=== PATIENT | male | born 1990 | race Caucasian/White ===

== ENCOUNTER 2017-07-15 07:23 | Observation (INO) | payer OTHER, MEDICAID ==
[~2017-07-15 07:23] MED LIST: CLINDAMYCIN 900 MG/DEXTROSE 50 ML IV ONE
[2017-07-15] MEDS ORDERED: LIDOCAINE 1% 2 ML INJ ONE (07:35)
[2017-07-15] MEDS ORDERED: LIDOCAINE 1% 2 ML INJ ID PRN (07:50)
[2017-07-15] MEDS ORDERED: LR 1,000 ML IV ONE (07:50)
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
[2017-07-15] MEDS ORDERED: ROPIVACAINE HCL 150 MG/30 ML INJ ONE (09:09)
[2017-07-15] MEDS ORDERED: fentaNYL 100 MCG/2 ML INJ ONE ×2 (09:10)
[2017-07-15] MEDS ORDERED: PROPOFOL 200 MG/20 ML VIAL ONE ×2 (09:10→10:03)
--- NOTE | 2017-07-15 09:13 | PDHPUP ---
History & Physical Update H&P update statement: This history and physical update is based on an assessment of the patient which was completed after admission or registration (within 24 hours), but prior to the surgery/procedure.
[2017-07-15] MEDS ORDERED: HYDROmorphONE/DILAUDID 2 MG/ML INJ ONE (10:02)
[2017-07-15] MEDS ORDERED: PROMETHAZINE HCL 25 MG/ML INJ IVP PRN (11:44)
[2017-07-15] MEDS ORDERED: HYDROmorphONE/DILAUDID 1 MG/ML INJ IVP PRN ×2 (11:44→13:15)
[2017-07-15] MEDS ORDERED: fentaNYL 100 MCG/2 ML INJ IVP PRN (11:44)
[2017-07-15] MEDS ORDERED: NALOXONE HCL 0.4 MG/ML INJ IVP PRN (11:44)
[2017-07-15] MEDS ORDERED: ONDANSETRON 4 MG/2 ML VIAL IVP PRN (11:44)
[2017-07-15] MEDS ORDERED: ROPIVACAINE 0.2% 550 MG in WATER FOR INJECTION,STERILE 275 ML, PUMP SET 1 EA NB SCH (12:30)
[2017-07-15] MEDS ORDERED: ONDANSETRON 4 MG/2 ML VIAL ONE (13:08)
[2017-07-15] MEDS ORDERED: DEXAMETHASONE 4 MG/ML VIAL ONE (13:08)
--- NOTE | 2017-07-15 13:09 | POSTOPPROG ---
Post Op Note Date of Operation: 07/15/17 Surgeon: Cesar Page Starch Mangle Tender: Stephanie Anesthesia: GET(General Endotracheal) Pre-op Diagnosis: R cavovarus foot Post-op Diagnosis: same Indication: above Procedure: R cavovarus foot correction Inf/Abcess present in the surg proc area at time of surgery?: No EBL: 50-100
[2017-07-15] MEDS ORDERED: oxyCODONE IR 5 MG TAB PO PRN (13:15)
[2017-07-15] MEDS ORDERED: ACETAMINOPHEN 325 MG TAB PO PRN (13:15)
--- NOTE | 2017-07-15 13:16 | POSTANESTH ---
Post Anesthetic Evaluation Cardiovascular Status: Normal, Stable Respiratory Status: Normal, Stable Level of Consciousness/Mental Status: Can Participate in Eval Pain Control: Adequate, Prn Tx Ordered Nausea/Vomiting Control: Adequate, Prn Tx Ordered Complications Possibly Related to Anesthesia: None Noted
[2017-07-15] MEDS ORDERED: HYDROmorphone HCL/NS/PF 0.4 MG/2 ML SYR IVP PRN (13:42)
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
[2017-07-16 03:09] VITALS: TEMP 98.1
[2017-07-16 07:57] VITALS: BP 126/58; PULSE 93; RESP 16; O2SAT 91
[2017-07-16] MEDS ORDERED: ENOXAPARIN 40 MG/0.4 ML SYR SC SCH (09:00)
--- NOTE | 2017-07-16 09:07 | SOAPPROG ---
SOAP Progress Note Assessment/Plan: Assessment: R cavovarus foot correction Plan: Home today ice elevate no wt 07/16/17 09:05 Subjective: no pain Objective: Vital Signs Temp Pulse Resp BP Pulse Ox 36.7 C 93 16 126/58 H 91 L 07/16/17 07:55 07/16/17 07:55 07/16/17 07:55 07/16/17 07:55 07/16/17 07:55 07/15/17 07/16/17 07/17/17 05:59 05:59 05:59 Intake Total 3100 Output Total 1710 Balance 1390 toes with good cap refill splint intact ICD10 Worksheet Patient Problems: Problems Problem Status Onset Cavovarus deformity of foot, acquired Acute - ICD10 Problem Qualifiers (1) Cavovarus deformity of foot, acquired Qualifiers: Laterality: right Qualified Code(s): M21.6X1 - Other acquired deformities of right foot
[2017-07-16] MEDS ORDERED: HYDROCORTISONE 10 MG TAB PO SCH (09:15)
--- NOTE | 2017-07-16 10:15 | ASDISCHSUM ---
Discharge Information Plan Status:Home with No Needs Medically Cleared to Leave: Discharge Date:07/16/2017 10:04 AM CM D/C Disposition:Home, Routine, Self-Care ADT D/C Disposition:Home, Routine, Self-Care Projected Discharge Date:07/16/2017 10:04 AM Transportation at D/C: Discharge Delay Reason: Follow-Up Date:07/16/2017 10:04 AM Discharge Slot: Final Diagnosis: Placement Information Patient Contact Information Contact Name:LOUISE Relationship:Mother Address: Work Phone: City: [facility] Phone: State/[employer] Code: Email: Financial Information Financial Class: Primary Plan Desc:MEDICARE OUTPATIENT Primary Plan Number:[id number] Secondary Plan Desc:MEDICAID HEALTH [employer] Secondary Plan Number:[id number] Assessment Information Intervention Information
[2017-07-16] MEDS ORDERED: Herbals/Supplements -Info Only PO SCH (21:00)
[2017-07-16] MEDS ORDERED: LEVOTHYROXINE 175 MCG TAB PO SCH (21:00)
[2017-07-17] MEDS ORDERED: ASPIRIN 81 MG CHEWABLE TAB PO SCH (09:00)
[2017-07-17] MEDS ORDERED: HYDROCORTISONE 20 MG PO SCH (09:00)
--- NOTE | 2017-07-17 14:05 | GDS ---
[f rep st] DISCHARGE SUMMARY REASON FOR HOSPITALIZATION: He was admitted after a right cavovarus foot correction. He progressed well with his pain control, was able to clear PT and tolerating a regular diet, met criteria for disc harge home. PROCEDURES PERFORMED: 1. Right cavovarus foot reconstruction. 2. Right Krishan procedure. 3. Right Nicolas procedure. 4. Right 1st ray dorsiflexion osteotomy. 5. Right posterior tibial tendon transfer, and right peroneus longus tendon transfer. CONSULTING PHYSICIANS: None. CONDITION ON DISCHARGE: Stable. DISPOSITION: He was sent home. He was sent home on a regular diet. He was sent home in a splint. H e is to ice and elevate this and put no weight on it. He is being sent with a nerve block and he was given directions for this from Anesthesia. He will come back to the office for followup in a week. He is to call or go to his local hospital if he has any chest pain, shortness of breath, fever, or o therwise concerned. He is to start on his previous home medications and given oxycodone for pain. /[id number]/MODL
[2017-07-28] MEDS ORDERED: TESTOSTERONE IM 100 MG/ML SYRINGE IM SCH (09:00)
== END 2017-07-16 10:04 | disposition home or self-care (01) ==
LOC: FSGY 07:23 → F3N 13:15
PROVIDERS: ADMIT Orthopaedic Surgery; ATTEND Orthopaedic Surgery
DX: Q66.1 Congenital talipes calcaneovarus (principal); M62.461 Contracture of muscle, right lower leg; Z87.820 Personal history of traumatic brain injury; R29.818 Other symptoms and signs involving the nervous system
CPT/HCPCS: 27687; 27691; 27692; 28300; 28306; 97161; 97166; C1713; G8987; G8988; G8989; J1100; J1170; J1650; J2405; J2704; J2795; J3010